=== PATIENT | male | born 1950 | race African-American/Black ===

== ENCOUNTER 2022-01-09 11:50 | Inpatient (IN) | payer MEDICARE, OTHER ==
[2022-01-09 12:18] LABS: #Monocytes 1.3 10x3/uL (0.0-1.1); #Neutrophils 11.9 10x3/uL (1.5-8.4); %Basophils 0.2 % (0.0-2.0); %Eosinophils 0.3 % (0.0-6.0); %Neutrophils 79.9 % (40.0-75.0); Hemoglobin 12.7 g/dL (13.5-17.5); Mean Corpuscular HGB CONC 32.2 g/dL (32.0-36.0); Mean Corpuscular Hemoglobin 31.6 pg (27.0-33.0); Mean Platelet Volume 10.5 fl (7.4-10.4); Platelet Count 614 10x3/uL (150-450); RBC Distribution Width 19.1 % (11.5-14.5); Red Blood Cell (RBC) Count 4.02 10x6/uL (4.32-5.72); White Blood Cell (WBC) Count 14.9 10x3/uL (3.5-10.5)
[2022-01-09 12:38] LABS: Amphetamine Not Detected (NotDetected); Barbiturates Screen Not Detected (NotDetected); Benzodiazepine Screen Not Detected (NotDetected); Cocaine Metabolite Screen Not Detected (NotDetected); Methadone Not Detected (NotDetected); Methamphetamine Not Detected (NotDetected); Opiate Screen Not Detected (NotDetected); Oxycodone Screen Not Detected (NotDetected); Phencyclidine (PCP) Not Detected (NotDetected); THC/Cannabinoid Screen Not Detected (NotDetected); Tricyclic Screen Not Detected (NotDetected)
[2022-01-09 12:40] LABS: Acetaminophen Less than 10.0 mcg/mL (10.0-30.0); Alcohol Less than 10 mg/dL (Less than 10); Salicylate Less than 8.0 mg/dL (15.0-30.0)
[2022-01-09 12:41] LABS: Clarity Clear (Clear); Specific Gravity, Urine 1.025 (1.002-1.036)
[2022-01-09 12:41] LABS: ALT (SGPT) 39 U/L (8-55); AST (SGOT) 59 U/L (5-34); Albumin 3.6 g/dL (3.4-4.8); Alkaline Phosphatase 92 U/L (40-110); Anion Gap 29 mmol/L (10-20); Bilirubin, Total 2.5 mg/dL (0.2-1.2); CK (CPK) 524 U/L (30-200); Calc. Creatinine Clearance 0 mL/min (70-130); Calcium 9.9 mg/dL (7.8-10.44); Carbon Dioxide 24 mmol/L (23-31); Chloride 112 mmol/L (98-107); Globulin 5.7 g/dL (2.4-3.5); Glucose 135 mg/dL (80-115); Potassium 5.5 mmol/L (3.5-5.1); Protein, Total 9.3 g/dL (5.8-8.1); Sodium 159 mmol/L (136-145)
[2022-01-09 12:46] LABS: Leukocyte Unable to Interpret (Negative); Nitrite Unable to Interpret (Negative); Protein, Urine (Dipstick) Unable to Interpret mg/dl (Neg-Trace)
[2022-01-09 12:47] LABS: Glucose, Urine (Dipstick) Unable to Interpret mg/dL (Negative)
[2022-01-09 12:48] LABS: Bilirubin Unable to Interpret (Negative); Ketone, Urine Unable to Interpret mg/dL (Negative); Urobilinogen UNABLE TO INTERPRET mg/dL (Less than 2)
[2022-01-09 12:49] LABS: Bacteria/HPF None Seen HPF (None Seen); Blood, Urine Unable to Interpret (Negative); RBC/HPF 0-3 HPF (0-3); Squamous Epithelial 0-3 HPF (0-3); WBC/HPF 0-3 HPF (0-3)
[2022-01-09 12:53] LABS: BUN (Urea Nitrogen) 181 mg/dL (8.4-25.7)
[2022-01-09] MEDS ORDERED: Aspirin Chewable 81 MG TAB ONE ×2 (13:26→13:32)
[2022-01-09] MEDS ORDERED: Folic Acid 1 MG TAB PO SCH (15:00)
[2022-01-09] MEDS ORDERED: Multivit, Therapeutic 1 TAB PO SCH (15:00)
[2022-01-09] MEDS ORDERED: Thiamine 100 MG TAB PO SCH (15:00)
[2022-01-09 15:02] LABS: Magnesium 4.2 mg/dL (1.6-2.6); Phosphorus 7.8 mg/dL (2.3-4.7)
[2022-01-09 17:21] VITALS: BMI 16.0
[2022-01-09] MEDS: Sodium Chloride 0.9% 1,000 ML IV SCH (17:51)
[2022-01-09 19:49] LABS: Anion Gap 22 mmol/L (10-20); Calc. Creatinine Clearance 11 mL/min (70-130); Calcium 9.7 mg/dL (7.8-10.44); Carbon Dioxide 26 mmol/L (23-31); Chloride 112 mmol/L (98-107); Glucose 124 mg/dL (80-115); Magnesium 3.8 mg/dL (1.6-2.6); Potassium 4.7 mmol/L (3.5-5.1); Sodium 155 mmol/L (136-145)
[2022-01-09 19:50] LABS: Phosphorus 6.1 mg/dL (2.3-4.7)
[2022-01-09 19:56] LABS: Troponin I 0.462 ng/mL (< 0.028)
[2022-01-09 19:59] LABS: BUN (Urea Nitrogen) 169 mg/dL (8.4-25.7)
[2022-01-09] MEDS ORDERED: Labetalol HCl 100 MG/20 ML VIAL SLOW IVP PRN (20:59)
[2022-01-09] MEDS ORDERED: Labetalol HCl 100 MG/20 ML VIAL SLOW IVP SCH (21:00)
[2022-01-09] MEDS: Heparin 5,000 UNITS/ML VIAL SC SCH (21:13)
[2022-01-09] MEDS: Atorvastatin Calcium 40 MG TAB PO SCH (21:13)
[2022-01-09] MEDS ORDERED: Electrolyte Replacement Protocol FS PRN (23:45)
[2022-01-09] MEDS ORDERED: Lorazepam 2 MG/ML VIAL IM PRN (23:45)
[2022-01-09] MEDS ORDERED: Ondansetron ODT 4 MG TAB PO PRN (23:45)
[2022-01-10] MEDS: Sodium Chloride 0.9% 1,000 ML IV SCH ×4 (00:03→22:34)
[2022-01-10] MEDS: Lorazepam 1 MG TAB PO SCH ×4 (00:03→17:00)
[2022-01-10] MEDS: Thiamine HCl 200 MG/2 ML VIAL SLOW IVP SCH (00:03)
[2022-01-10 00:17] LABS: Critical Call Chem Troponin I RESULT DECREASING; Troponin I 0.382 ng/mL (< 0.028)
[2022-01-10 03:02] LABS: SARS-CoV-2 NAA Rapid Test Not Detected (NotDetected)
[2022-01-10 05:17] LABS: #Monocytes 0.9 10x3/uL (0.0-1.1); #Neutrophils 11.2 10x3/uL (1.5-8.4); %Basophils 0.2 % (0.0-2.0); %Eosinophils 0.3 % (0.0-6.0); %Lymphocytes 7.9 % (18.0-47.0); %Monocytes 6.7 % (0.0-10.0); %Neutrophils 84.1 % (40.0-75.0); Hemoglobin 12.4 g/dL (13.5-17.5); Mean Corpuscular HGB CONC 32.5 g/dL (32.0-36.0); Mean Corpuscular Hemoglobin 31.8 pg (27.0-33.0); Mean Corpuscular Volume 97.7 fl (81.2-95.1); Mean Platelet Volume 10.7 fl (7.4-10.4); Platelet Count 519 10x3/uL (150-450); RBC Distribution Width 18.6 % (11.5-14.5); White Blood Cell (WBC) Count 13.4 10x3/uL (3.5-10.5)
[2022-01-10 05:27] LABS: Anion Gap 22 mmol/L (10-20); CK (CPK) 831 U/L (30-200); Calc. Creatinine Clearance 14 mL/min (70-130); Calcium 8.9 mg/dL (7.8-10.44); Carbon Dioxide 18 mmol/L (23-31); Chloride 114 mmol/L (98-107); Glucose 113 mg/dL (80-115); Potassium 4.7 mmol/L (3.5-5.1); Sodium 149 mmol/L (136-145)
[2022-01-10 05:40] LABS: BUN (Urea Nitrogen) 140 mg/dL (8.4-25.7)
[2022-01-10] MEDS: Folic Acid 1 MG TAB PO SCH (09:14)
[2022-01-10] MEDS: Aspirin 81 mg Enteric Coated Tablet PO SCH (09:15)
[2022-01-10] MEDS: Multivit, Therapeutic 1 TAB PO SCH (09:15)
[2022-01-10] MEDS: Heparin 5,000 UNITS/ML VIAL SC SCH ×2 (09:21→22:01)
[2022-01-10] MEDS: Carvedilol 6.25 MG TAB PO SCH (16:53)
[2022-01-10] MEDS: Atorvastatin Calcium 40 MG TAB PO SCH (22:09)
[2022-01-10] MEDS ORDERED: Lorazepam 1 MG TAB PO PRN ×2 (23:59)
[2022-01-11] MEDS ORDERED: Lorazepam 2 MG/ML VIAL SLOW IVP PRN (01:20)
[2022-01-11] MEDS: Lorazepam 1 MG TAB PO SCH ×4 (01:20→18:18)
[2022-01-11] MEDS: Thiamine HCl 200 MG/2 ML VIAL SLOW IVP SCH (01:30)
[2022-01-11 05:13] LABS: #Eosinphils 0.2 10x3/uL (0.0-0.5); #Monocytes 0.8 10x3/uL (0.0-1.1); #Neutrophils 9.6 10x3/uL (1.5-8.4); %Basophils 0.2 % (0.0-2.0); %Eosinophils 1.6 % (0.0-6.0); %Lymphocytes 10.1 % (18.0-47.0); %Monocytes 6.9 % (0.0-10.0); %Neutrophils 80.5 % (40.0-75.0); Hemoglobin 10.6 g/dL (13.5-17.5); Mean Corpuscular HGB CONC 33.7 g/dL (32.0-36.0); Mean Corpuscular Volume 95.2 fl (81.2-95.1); Mean Platelet Volume 10.6 fl (7.4-10.4); Platelet Count 448 10x3/uL (150-450); RBC Distribution Width 18.2 % (11.5-14.5); Red Blood Cell (RBC) Count 3.31 10x6/uL (4.32-5.72)
[2022-01-11 05:25] LABS: Anion Gap 15 mmol/L (10-20); BUN (Urea Nitrogen) 104 mg/dL (8.4-25.7); Calc. Creatinine Clearance 20 mL/min (70-130); Calcium 8.4 mg/dL (7.8-10.44); Carbon Dioxide 21 mmol/L (23-31); Chloride 119 mmol/L (98-107); Glucose 97 mg/dL (80-115); Potassium 3.9 mmol/L (3.5-5.1); Sodium 151 mmol/L (136-145)
[2022-01-11] MEDS: Sodium Chloride 0.45% 1,000 ML IV SCH ×2 (07:02→16:50)
[2022-01-11] MEDS: Multivit, Therapeutic 1 TAB PO SCH (08:07)
[2022-01-11] MEDS: Folic Acid 1 MG TAB PO SCH (08:07)
[2022-01-11] MEDS: Carvedilol 6.25 MG TAB PO SCH ×2 (08:07→18:14)
[2022-01-11] MEDS: Aspirin 81 mg Enteric Coated Tablet PO SCH (08:07)
[2022-01-11] MEDS: Heparin 5,000 UNITS/ML VIAL SC SCH ×2 (09:49→21:59)
[2022-01-11] MEDS: Sodium Chloride 0.9% 1,000 ML IV SCH (17:07)
[2022-01-11] MEDS: Acetaminophen 325 MG TAB PO PRN (18:13)
[2022-01-11] MEDS: Atorvastatin Calcium 40 MG TAB PO SCH (21:59)
[2022-01-11] MEDS ORDERED: Lorazepam 1 MG TAB PO PRN (23:59)
[2022-01-12] MEDS: Thiamine HCl 200 MG/2 ML VIAL SLOW IVP SCH (00:13)
[2022-01-12] MEDS: Acetaminophen 325 MG TAB PO PRN ×2 (00:19→09:16)
[2022-01-12] MEDS: Sodium Chloride 0.45% 1,000 ML IV SCH ×4 (00:27→12:55)
[2022-01-12] MEDS: Lorazepam 0.5 MG TAB PO SCH ×4 (01:23→18:25)
[2022-01-12 05:01] LABS: #Eosinphils 0.2 10x3/uL (0.0-0.5); #Monocytes 0.8 10x3/uL (0.0-1.1); #Neutrophils 10.2 10x3/uL (1.5-8.4); %Basophils 0.2 % (0.0-2.0); %Eosinophils 1.9 % (0.0-6.0); %Lymphocytes 10.3 % (18.0-47.0); %Monocytes 6.4 % (0.0-10.0); %Neutrophils 80.6 % (40.0-75.0); Hemoglobin 9.9 g/dL (13.5-17.5); Mean Corpuscular HGB CONC 32.9 g/dL (32.0-36.0); Mean Corpuscular Hemoglobin 31.9 pg (27.0-33.0); Mean Corpuscular Volume 97.1 fl (81.2-95.1); Mean Platelet Volume 10.4 fl (7.4-10.4); Platelet Count 439 10x3/uL (150-450); RBC Distribution Width 18.3 % (11.5-14.5); White Blood Cell (WBC) Count 12.7 10x3/uL (3.5-10.5)
[2022-01-12 05:10] LABS: Anion Gap 14 mmol/L (10-20); BUN (Urea Nitrogen) 59 mg/dL (8.4-25.7); Calc. Creatinine Clearance 25 mL/min (70-130); Calcium 8.3 mg/dL (7.8-10.44); Carbon Dioxide 22 mmol/L (23-31); Chloride 114 mmol/L (98-107); Glucose 106 mg/dL (80-115); Potassium 3.7 mmol/L (3.5-5.1); Sodium 146 mmol/L (136-145)
[2022-01-12] MEDS: Heparin 5,000 UNITS/ML VIAL SC SCH ×2 (09:15→20:39)
[2022-01-12] MEDS: Folic Acid 1 MG TAB PO SCH (09:17)
[2022-01-12] MEDS: Aspirin 81 mg Enteric Coated Tablet PO SCH (09:17)
[2022-01-12] MEDS: Multivit, Therapeutic 1 TAB PO SCH (09:17)
[2022-01-12] MEDS: Carvedilol 6.25 MG TAB PO SCH ×2 (09:18→18:25)
[2022-01-12] MEDS: Atorvastatin Calcium 40 MG TAB PO SCH (20:38)
[2022-01-12] MEDS: Thiamine 100 MG TAB PO SCH (20:38)
[2022-01-13] MEDS ORDERED: Lorazepam 0.5 MG TAB PO PRN
[2022-01-13] MEDS: Sodium Chloride 0.45% 1,000 ML IV SCH (01:06)
[2022-01-13 04:48] LABS: Hemoglobin 10.6 g/dL (13.5-17.5); Mean Corpuscular HGB CONC 34.8 g/dL (32.0-36.0); Mean Corpuscular Hemoglobin 32.4 pg (27.0-33.0); Mean Corpuscular Volume 93.3 fl (81.2-95.1); Mean Platelet Volume 10.3 fl (7.4-10.4); Platelet Count 443 10x3/uL (150-450); RBC Distribution Width 17.4 % (11.5-14.5); Red Blood Cell (RBC) Count 3.27 10x6/uL (4.32-5.72); White Blood Cell (WBC) Count 11.9 10x3/uL (3.5-10.5)
[2022-01-13 05:04] LABS: Anion Gap 14 mmol/L (10-20); BUN (Urea Nitrogen) 30 mg/dL (8.4-25.7); Calc. Creatinine Clearance 31 mL/min (70-130); Calcium 8.3 mg/dL (7.8-10.44); Carbon Dioxide 21 mmol/L (23-31); Chloride 106 mmol/L (98-107); Glucose 87 mg/dL (80-115); Potassium 3.4 mmol/L (3.5-5.1); Sodium 138 mmol/L (136-145)
[2022-01-13 05:16] LABS: MDiff Complete? YES
[2022-01-13 05:18] LABS: Eosinophils 1 % (0-10); Lymphocytes 14 % (21-51); Monocytes 7 % (0-10); Neutrophil 78 % (42-75)
[2022-01-13 05:21] LABS: Platelet Morphology Comment Appears Increased
[2022-01-13 05:22] LABS: RBC Morphology Normal
[2022-01-13] MEDS ORDERED: Sodium Chloride 0.9% 1,000 ML IV SCH (07:45)
[2022-01-13] MEDS: Multivit, Therapeutic 1 TAB PO SCH (09:05)
[2022-01-13] MEDS: Heparin 5,000 UNITS/ML VIAL SC SCH ×2 (09:05→20:32)
[2022-01-13] MEDS: Carvedilol 6.25 MG TAB PO SCH ×2 (09:05→18:25)
[2022-01-13] MEDS: Folic Acid 1 MG TAB PO SCH (09:05)
[2022-01-13] MEDS: Aspirin 81 mg Enteric Coated Tablet PO SCH (09:05)
[2022-01-13] MEDS: Atorvastatin Calcium 40 MG TAB PO SCH (20:32)
[2022-01-13] MEDS: Thiamine 100 MG TAB PO SCH (20:32)
[2022-01-14 04:41] LABS: Platelet Count 422 10x3/uL (150-450)
[2022-01-14 04:42] LABS: #Eosinphils 0.2 10x3/uL (0.0-0.5); #Monocytes 1.1 10x3/uL (0.0-1.1); #Neutrophils 7.8 10x3/uL (1.5-8.4); %Basophils 0.3 % (0.0-2.0); %Eosinophils 1.5 % (0.0-6.0); %Lymphocytes 16.3 % (18.0-47.0); %Neutrophils 71.2 % (40.0-75.0); Mean Corpuscular HGB CONC 33.9 g/dL (32.0-36.0); Mean Corpuscular Hemoglobin 31.8 pg (27.0-33.0); Mean Corpuscular Volume 93.9 fl (81.2-95.1); Mean Platelet Volume 10.9 fl (7.4-10.4); Red Blood Cell (RBC) Count 3.14 10x6/uL (4.32-5.72)
[2022-01-14 05:03] LABS: Anion Gap 13 mmol/L (10-20); BUN (Urea Nitrogen) 19 mg/dL (8.4-25.7); Calc. Creatinine Clearance 37 mL/min (70-130); Calcium 8.1 mg/dL (7.8-10.44); Carbon Dioxide 23 mmol/L (23-31); Chloride 103 mmol/L (98-107); Glucose 97 mg/dL (80-115); Sodium 136 mmol/L (136-145)
[2022-01-14] MEDS ORDERED: Potassium Chloride 20 MEQ TAB PO SCH (08:00)
[2022-01-14] MEDS: Carvedilol 6.25 MG TAB PO SCH ×2 (08:42→17:15)
[2022-01-14] MEDS: Multivit, Therapeutic 1 TAB PO SCH (08:42)
[2022-01-14] MEDS: Aspirin 81 mg Enteric Coated Tablet PO SCH (08:42)
[2022-01-14] MEDS: Lisinopril 2.5 MG TAB PO SCH (08:42)
[2022-01-14] MEDS: Folic Acid 1 MG TAB PO SCH (08:42)
[2022-01-14] MEDS: Heparin 5,000 UNITS/ML VIAL SC SCH ×2 (08:43→20:38)
[2022-01-14] MEDS: Thiamine 100 MG TAB PO SCH (20:38)
[2022-01-14] MEDS: Atorvastatin Calcium 40 MG TAB PO SCH (20:38)
[2022-01-15 04:46] LABS: Anion Gap 15 mmol/L (10-20); BUN (Urea Nitrogen) 17 mg/dL (8.4-25.7); Calc. Creatinine Clearance 38 mL/min (70-130); Calcium 8.1 mg/dL (7.8-10.44); Carbon Dioxide 21 mmol/L (23-31); Chloride 102 mmol/L (98-107); Glucose 92 mg/dL (80-115); Magnesium 1.4 mg/dL (1.6-2.6); Sodium 135 mmol/L (136-145)
[2022-01-15] MEDS ORDERED: Electrolyte Replacement Protocol 1 EACH FS PRN (08:00)
[2022-01-15] MEDS: Lisinopril 2.5 MG TAB PO SCH (08:19)
[2022-01-15] MEDS: Aspirin 81 mg Enteric Coated Tablet PO SCH (08:19)
[2022-01-15] MEDS: Folic Acid 1 MG TAB PO SCH (08:19)
[2022-01-15] MEDS: Multivit, Therapeutic 1 TAB PO SCH (08:19)
[2022-01-15] MEDS: Carvedilol 6.25 MG TAB PO SCH ×2 (08:19→16:33)
[2022-01-15] MEDS: Heparin 5,000 UNITS/ML VIAL SC SCH ×2 (08:21→21:00)
[2022-01-15] MEDS ORDERED: Potassium Chloride 20 MEQ TAB PO SCH ×2 (09:30→13:30)
[2022-01-15] MEDS: Magnesium 2 GM/50 ML(in water) 2 GM in Premix Bag 1 BAG IVPB SCH ×2 (09:36→11:21)
[2022-01-15 13:04] LABS: Potassium 3.4 mmol/L (3.5-5.1)
[2022-01-15] MEDS: Thiamine 100 MG TAB PO SCH (21:00)
[2022-01-15] MEDS: Atorvastatin Calcium 40 MG TAB PO SCH (21:00)
[2022-01-16 05:11] LABS: Anion Gap 15 mmol/L (10-20); BUN (Urea Nitrogen) 12 mg/dL (8.4-25.7); Calc. Creatinine Clearance 42 mL/min (70-130); Calcium 8.3 mg/dL (7.8-10.44); Carbon Dioxide 22 mmol/L (23-31); Chloride 103 mmol/L (98-107); Glucose 94 mg/dL (80-115); Phosphorus 2.5 mg/dL (2.3-4.7); Potassium 3.8 mmol/L (3.5-5.1); Sodium 136 mmol/L (136-145)
[2022-01-16] MEDS ORDERED: Magnesium 2 GM/50 ML(in water) 2 GM in Premix Bag 1 BAG IVPB SCH (05:15)
[2022-01-16] MEDS: Lisinopril 2.5 MG TAB PO SCH (09:05)
[2022-01-16] MEDS: Folic Acid 1 MG TAB PO SCH (09:05)
[2022-01-16] MEDS: Carvedilol 6.25 MG TAB PO SCH (09:05)
[2022-01-16] MEDS: Multivit, Therapeutic 1 TAB PO SCH (09:05)
[2022-01-16] MEDS: Aspirin 81 mg Enteric Coated Tablet PO SCH (09:06)
[2022-01-16] MEDS: Heparin 5,000 UNITS/ML VIAL SC SCH (09:14)
[2022-01-16 12:07] VITALS: BP 114/78; TEMP 98.7
== END 2022-01-16 15:53 | DRG 682 ==
LOC: CSHERS 11:50 → CSHTELE 15:38
PROVIDERS: ADMIT Internal Medicine; ATTEND Family Medicine
DX: N17.9 Acute kidney failure, unspecified (principal); I21.A1 Myocardial infarction type 2; E87.0 Hyperosmolality and hypernatremia; I42.9 Cardiomyopathy, unspecified; I50.20 Unspecified systolic (congestive) heart failure; E46 Unspecified protein-calorie malnutrition; Z68.1 Body mass index [BMI] 19.9 or less, adult; E86.0 Dehydration; E87.6 Hypokalemia; E83.42 Hypomagnesemia; E87.5 Hyperkalemia; D72.829 Elevated white blood cell count, unspecified; R53.81 Other malaise; I99.8 Other disorder of circulatory system; I95.9 Hypotension, unspecified; D64.9 Anemia, unspecified; R40.0 Somnolence; R33.9 Retention of urine, unspecified; F10.20 Alcohol dependence, uncomplicated; I11.0 Hypertensive heart disease with heart failure; L89.152 Pressure ulcer of sacral region, stage 2; L89.611 Pressure ulcer of right heel, stage 1; Z60.2 Problems related to living alone; Z20.822 Contact with and (suspected) exposure to COVID-19; Z87.891 Personal history of nicotine dependence
CPT/HCPCS: 36415; 51701; 70450; 71045; 76770; 80048; 80053; 80306; 80307; 81003; 81015; 82550; 82553; 83735; 84100; 84132; 84145; 84484; 85025; 93005; 93306; J1644; J2060; J3411; J3475; J7050; U0002